=== PATIENT | male | born 1990 | race Caucasian/White ===

== ENCOUNTER 2018-01-20 13:06 | Inpatient (IN) | payer MEDICAID, OTHER ==
[2018-01-20 13:59] LABS: HEMATOCRIT 41.8 % (42.0-52.0); HEMOGLOBIN 14.5 g/dl (13.5-17.5); MEAN CORPUSCULAR HEMOGLOBIN 30.1 pg (27.0-33.0); MEAN CORPUSCULAR HGB CONC 34.7 g/dl (32.0-36.5); MEAN CORPUSCULAR VOLUME 86.7 fl (80.0-96.0); PLATELET COUNT, AUTOMATED 317 10^3/uL (150-450); RED BLOOD COUNT 4.82 10^6/uL (4.30-6.10); RED CELL DISTRIBUTION WIDTH 12.1 % (11.5-14.5); WHITE BLOOD COUNT 16.7 10^3/uL (4.0-10.0)
[2018-01-20 14:23] LABS: AMPHETAMINES LEVEL URINE NEGATIVE (NEGATIVE); BARBITURATES URINE NEGATIVE (NEGATIVE); BENZODIAZEPINES URINE NEGATIVE (NEGATIVE); CANNABINOIDS URINE POSITIVE (NEGATIVE); COCAINE METABOLITE URINE NEGATIVE (NEGATIVE); METHADONE URINE NEGATIVE (NEGATIVE); OPIATES URINE NEGATIVE (NEGATIVE); PHENCYCLIDINE URINE NEGATIVE (NEGATIVE)
[2018-01-20] MEDS: hydrOXYzine 25 MG TAB PO (14:26)
[2018-01-20] MEDS: LISINOPRIL 10 MG TAB PO (14:30)
[2018-01-20 14:31] LABS: ALBUMIN 3.9 GM/DL (3.2-5.2); ALBUMIN/GLOBULIN RATIO 0.98 (1.00-1.93); ALKALINE PHOSPHATASE 111 U/L (45-117); ALT/SGPT 27 U/L (12-78); ANION GAP 7 MEQ/L (8-16); AST/SGOT 18 U/L (7-37); BILIRUBIN,DIRECT 0.1 MG/DL (0.0-0.2); BILIRUBIN,TOTAL 0.6 MG/DL (0.2-1.0); BLOOD UREA NITROGEN 11 MG/DL (7-18); CALCIUM LEVEL 9.4 MG/DL (8.5-10.1); CARBON DIOXIDE LEVEL 24 MEQ/L (21-32); CHLORIDE LEVEL 107 MEQ/L (98-107); CREATININE FOR GFR 0.85 MG/DL (0.70-1.30); ETHYL ALCOHOL (ETHANOL) < 0.003 % (0.000-0.010); GLOMERULAR FILTRATION RATE > 60.0 (>60); GLUCOSE, FASTING 104 MG/DL (70-100); POTASSIUM SERUM 3.9 MEQ/L (3.5-5.1); SALICYLATE LEVEL < 1.7 MG/DL (5.0-30.0); SODIUM LEVEL 138 MEQ/L (136-145); TOTAL PROTEIN 7.9 GM/DL (6.4-8.2)
[2018-01-20 14:38] LABS: ACETAMINOPHEN LEVEL < 2.0 UG/ML (10.0-30.0); CALCIUM OXALATE CRYSTALS RFX MODERATE; KETONE, URINE AUTO RFX TRACE mg/dL (NEGATIVE); LEUKOCYTE ESTERASE UR AUTO RFX NEGATIVE (NEGATIVE); MUCUS, URINE RFX SMALL (NEGATIVE); NITRITE, URINE AUTO RFX NEGATIVE (NEGATIVE); RBC, URINE AUTO RFX 2 /HPF (0-3); SPECIFIC GRAVITY UR AUTO RFX 1.029 (1.002-1.035); SQUAM EPITHELIAL CELL UR AURFX 0 /HPF (0-6); WBC, URINE AUTO RFX 2 /HPF (0-3)
[2018-01-20] MEDS: LORazepam 1 MG TAB PO (15:39)
[2018-01-20] MEDS ORDERED: MOM 30ML SUSPENSION UDC PO (17:30)
[2018-01-21] MEDS: DIVALPROEX 250MG *ER* TAB PO ×2 (09:00→21:00)
[2018-01-21] MEDS: HALOPERIDOL 5 MG TAB PO ×2 (09:00→21:00)
[2018-01-21 09:56] LABS: HEMATOCRIT 41.5 % (42.0-52.0); HEMOGLOBIN 14.2 g/dl (13.5-17.5); MEAN CORPUSCULAR HEMOGLOBIN 29.8 pg (27.0-33.0); MEAN CORPUSCULAR HGB CONC 34.2 g/dl (32.0-36.5); MEAN CORPUSCULAR VOLUME 87.2 fl (80.0-96.0); PLATELET COUNT, AUTOMATED 293 10^3/uL (150-450); RED BLOOD COUNT 4.76 10^6/uL (4.30-6.10); RED CELL DISTRIBUTION WIDTH 12.2 % (11.5-14.5); WHITE BLOOD COUNT 11.7 10^3/uL (4.0-10.0)
[2018-01-21] MEDS: ATORVASTATIN 10 MG TAB PO (10:01)
[2018-01-21] MEDS: LISINOPRIL 10 MG TAB PO (10:02)
[2018-01-21] MEDS: LORazepam 2 MG TAB PO ×2 (11:51→15:27)
[2018-01-21] MEDS: OLANZapine 10 MG TAB PO ×2 (11:51→21:00)
[2018-01-21] MEDS ORDERED: LORazepam 2 MG/ML VIAL (J2060) IM (14:00)
[2018-01-21 14:19] LABS: KETONE, URINE AUTO RFX NEGATIVE (NEGATIVE); LEUKOCYTE ESTERASE UR AUTO RFX NEGATIVE (NEGATIVE); MUCUS, URINE RFX SMALL (NEGATIVE); NITRITE, URINE AUTO RFX NEGATIVE (NEGATIVE); RBC, URINE AUTO RFX 0 /HPF (0-3); SPECIFIC GRAVITY UR AUTO RFX 1.005 (1.002-1.035); SQUAM EPITHELIAL CELL UR AURFX 0 /HPF (0-6); WBC, URINE AUTO RFX 0 /HPF (0-3)
[2018-01-21] MEDS: OLANZapine ORAL DISINTEGRATING TAB 5MG PO (15:27)
[2018-01-22] MEDS: LORazepam 2 MG TAB PO (08:22)
[2018-01-22] MEDS: LISINOPRIL 10 MG TAB PO (08:23)
[2018-01-22] MEDS: ATORVASTATIN 10 MG TAB PO (08:23)
[2018-01-22] MEDS: HALOPERIDOL 5 MG TAB PO ×2 (08:26→20:08)
[2018-01-22] MEDS: DIVALPROEX 250MG *ER* TAB PO ×2 (08:26→20:08)
[2018-01-22] MEDS: OLANZapine 10 MG TAB PO ×2 (08:26→20:08)
[2018-01-22] MEDS: hydrOXYzine 50 MG TAB PO (09:27)
[2018-01-23] MEDS: ATORVASTATIN 10 MG TAB PO (08:32)
[2018-01-23] MEDS: LORazepam 2 MG TAB PO (08:32)
[2018-01-23] MEDS: LISINOPRIL 10 MG TAB PO (08:32)
[2018-01-23] MEDS: HALOPERIDOL 5 MG TAB PO ×2 (08:33→21:18)
[2018-01-23] MEDS: OLANZapine 10 MG TAB PO ×2 (08:33→21:18)
[2018-01-23] MEDS: DIVALPROEX 250MG *ER* TAB PO ×2 (08:33→21:18)
[2018-01-23] MEDS: traZODone 50 MG TAB PO (22:23)
[2018-01-24] MEDS: ATORVASTATIN 10 MG TAB PO (08:29)
[2018-01-24] MEDS: HALOPERIDOL 5 MG TAB PO ×2 (08:29→20:44)
[2018-01-24] MEDS: OLANZapine 10 MG TAB PO ×2 (08:29→20:44)
[2018-01-24] MEDS: DIVALPROEX 250MG *ER* TAB PO ×2 (08:29→20:45)
[2018-01-24] MEDS: LISINOPRIL 10 MG TAB PO (08:30)
[2018-01-24] MEDS: ACETAMINOPHEN TAB 650MG DOSE (2X325MG) PO (09:28)
[2018-01-24] MEDS: MAALOX 30 ML SUSP *UDC PO (13:22)
[2018-01-24] MEDS: OLANZapine ORAL DISINTEGRATING TAB 5MG PO (13:46)
[2018-01-24] MEDS: LORazepam 2 MG TAB PO (18:25)
[2018-01-24] MEDS: traZODone 50 MG TAB PO (20:44)
[2018-01-25] MEDS: ATORVASTATIN 10 MG TAB PO (08:52)
[2018-01-25] MEDS: DIVALPROEX 250MG *ER* TAB PO ×2 (08:52→21:00)
[2018-01-25] MEDS: OLANZapine 10 MG TAB PO ×3 (08:52→21:22)
[2018-01-25] MEDS: LISINOPRIL 10 MG TAB PO (08:52)
[2018-01-25] MEDS: HALOPERIDOL 5 MG TAB PO ×2 (08:52→21:00)
[2018-01-25] MEDS: OLANZapine ORAL DISINTEGRATING TAB 5MG PO (17:17)
[2018-01-25] MEDS: traZODone 50 MG TAB PO (21:22)
[2018-01-26] MEDS: HALOPERIDOL 5 MG TAB PO (09:30)
[2018-01-26] MEDS: DIVALPROEX 250MG *ER* TAB PO ×2 (09:31→21:00)
[2018-01-26] MEDS: LISINOPRIL 10 MG TAB PO (09:31)
[2018-01-26] MEDS: ATORVASTATIN 10 MG TAB PO (09:31)
[2018-01-26] MEDS: OLANZapine 10 MG TAB PO (09:31)
[2018-01-26] MEDS: LORazepam 2 MG TAB PO (11:44)
[2018-01-26] MEDS: HALOPERIDOL 10 MG TAB PO (21:00)
[2018-01-27] MEDS: OLANZapine 10 MG TAB PO (08:05)
[2018-01-27] MEDS: LISINOPRIL 10 MG TAB PO (08:06)
[2018-01-27] MEDS: ATORVASTATIN 10 MG TAB PO (08:06)
[2018-01-27] MEDS: DIVALPROEX 250MG *ER* TAB PO ×2 (08:06→21:31)
[2018-01-27] MEDS: HALOPERIDOL 10 MG TAB PO ×3 (08:07→21:31)
[2018-01-27 10:28] LABS: VALPROIC ACID (DEPAKOTE) 59.1 UG/ML (50.0-100.0)
[2018-01-27] MEDS: traZODone 50 MG TAB PO (21:31)
[2018-01-28] MEDS: OLANZapine 5 MG TAB PO (08:06)
[2018-01-28] MEDS: HALOPERIDOL 10 MG TAB PO ×2 (08:06→20:45)
[2018-01-28] MEDS: ATORVASTATIN 10 MG TAB PO (08:06)
[2018-01-28] MEDS: LISINOPRIL 10 MG TAB PO (08:06)
[2018-01-28] MEDS: DIVALPROEX 250MG *ER* TAB PO ×2 (08:06→20:46)
[2018-01-28] MEDS: OLANZapine ORAL DISINTEGRATING TAB 5MG PO (10:51)
[2018-01-28] MEDS: traZODone 50 MG TAB PO (20:45)
[2018-01-28] MEDS: MAALOX 30 ML SUSP *UDC PO (20:46)
[2018-01-29] MEDS: ATORVASTATIN 10 MG TAB PO (08:15)
[2018-01-29] MEDS: HALOPERIDOL 10 MG TAB PO ×2 (08:15→21:19)
[2018-01-29] MEDS: DIVALPROEX 250MG *ER* TAB PO ×2 (08:15→21:20)
[2018-01-29] MEDS: OLANZapine 5 MG TAB PO (08:15)
[2018-01-29] MEDS: LISINOPRIL 10 MG TAB PO (08:15)
[2018-01-29] MEDS: LACTOBACILLUS ACIDOPHILUS CAP (BACID) PO ×2 (11:34→21:19)
[2018-01-29] MEDS: BACITRACIN OINT 30GM TOP ×2 (11:34→21:00)
[2018-01-29] MEDS: CLINDAMYCIN 150 MG CAP PO ×2 (13:35→21:19)
[2018-01-29] MEDS: traZODone 50 MG TAB PO (21:20)
[2018-01-30] MEDS: CLINDAMYCIN 150 MG CAP PO ×3 (05:54→21:05)
[2018-01-30] MEDS: LISINOPRIL 10 MG TAB PO (08:09)
[2018-01-30] MEDS: ATORVASTATIN 10 MG TAB PO (08:09)
[2018-01-30] MEDS: DIVALPROEX 250MG *ER* TAB PO ×2 (08:09→21:05)
[2018-01-30] MEDS: HALOPERIDOL 10 MG TAB PO ×2 (08:09→21:05)
[2018-01-30] MEDS: LACTOBACILLUS ACIDOPHILUS CAP (BACID) PO ×2 (08:09→21:05)
[2018-01-30] MEDS: OLANZapine 5 MG TAB PO (08:09)
[2018-01-30] MEDS: BACITRACIN OINT 30GM TOP ×2 (08:10→21:00)
[2018-01-30] MEDS: LORazepam 1 MG TAB PO (11:23)
[2018-01-30] MEDS: diphenhydrAMINE 50 MG CAP PO (11:23)
[2018-01-30] MEDS: traZODone 50 MG TAB PO (21:04)
[2018-01-31] MEDS: CLINDAMYCIN 150 MG CAP PO ×3 (06:22→21:14)
[2018-01-31] MEDS: OLANZapine 5 MG TAB PO (08:14)
[2018-01-31] MEDS: LISINOPRIL 10 MG TAB PO (08:14)
[2018-01-31] MEDS: LACTOBACILLUS ACIDOPHILUS CAP (BACID) PO ×2 (08:14→20:05)
[2018-01-31] MEDS: BACITRACIN OINT 30GM TOP ×2 (08:14→20:07)
[2018-01-31] MEDS: HALOPERIDOL 10 MG TAB PO ×2 (08:14→20:05)
[2018-01-31] MEDS: ATORVASTATIN 10 MG TAB PO (08:14)
[2018-01-31] MEDS: DIVALPROEX 250MG *ER* TAB PO ×2 (08:14→20:05)
[2018-01-31] MEDS: HALOPERIDOL DECANOATE 100 MG/ML VIAL (J1631) IM (10:40)
[2018-01-31 13:23] LABS: VALPROIC ACID (DEPAKOTE) 125.4 UG/ML (50.0-100.0)
[2018-01-31] MEDS: traZODone 50 MG TAB PO (20:07)
[2018-02-01] MEDS: CLINDAMYCIN 150 MG CAP PO ×3 (06:25→21:35)
[2018-02-01] MEDS: ATORVASTATIN 10 MG TAB PO (08:01)
[2018-02-01] MEDS: LISINOPRIL 10 MG TAB PO (08:01)
[2018-02-01] MEDS: OLANZapine 5 MG TAB PO (08:01)
[2018-02-01] MEDS: HALOPERIDOL 10 MG TAB PO ×2 (08:01→20:33)
[2018-02-01] MEDS: BACITRACIN OINT 30GM TOP ×2 (08:01→20:34)
[2018-02-01] MEDS: LACTOBACILLUS ACIDOPHILUS CAP (BACID) PO ×2 (08:01→20:33)
[2018-02-01] MEDS: DIVALPROEX 250MG *ER* TAB PO (08:44)
[2018-02-01] MEDS: traZODone 50 MG TAB PO (21:35)
[2018-02-02] MEDS: CLINDAMYCIN 150 MG CAP PO ×3 (05:41→22:07)
[2018-02-02] MEDS: OLANZapine 5 MG TAB PO (08:01)
[2018-02-02] MEDS: LISINOPRIL 10 MG TAB PO (08:02)
[2018-02-02] MEDS: HALOPERIDOL 10 MG TAB PO ×2 (08:02→20:08)
[2018-02-02] MEDS: BACITRACIN OINT 30GM TOP ×2 (08:02→20:06)
[2018-02-02] MEDS: LACTOBACILLUS ACIDOPHILUS CAP (BACID) PO ×2 (08:02→20:08)
[2018-02-02] MEDS: ATORVASTATIN 10 MG TAB PO (08:02)
[2018-02-02 11:10] LABS: VALPROIC ACID (DEPAKOTE) 90.7 UG/ML (50.0-100.0)
[2018-02-02] MEDS: DIVALPROEX 500MG *ER* TAB PO ×2 (13:29→20:08)
[2018-02-02] MEDS: traZODone 50 MG TAB PO (20:08)
[2018-02-03] MEDS: CLINDAMYCIN 150 MG CAP PO (06:01)
[2018-02-03] MEDS: BACITRACIN OINT 30GM TOP (08:09)
[2018-02-03] MEDS: ATORVASTATIN 10 MG TAB PO (08:11)
[2018-02-03] MEDS: LACTOBACILLUS ACIDOPHILUS CAP (BACID) PO (08:11)
[2018-02-03] MEDS: DIVALPROEX 500MG *ER* TAB PO (08:11)
[2018-02-03] MEDS: LISINOPRIL 10 MG TAB PO (08:11)
[2018-02-03] MEDS: HALOPERIDOL 10 MG TAB PO (08:11)
[2018-02-03] MEDS: OLANZapine 5 MG TAB PO (08:11)
== END 2018-02-03 13:20 | disposition home or self-care (01) | DRG 885 ==
LOC: M ED 13:06 → M ED INP 17:22 → M PSY 18:15
DX: F25.0 Schizoaffective disorder, bipolar type (principal); F20.0 Paranoid schizophrenia; Z79.899 Other long term (current) drug therapy; I10 Essential (primary) hypertension; E78.5 Hyperlipidemia, unspecified; M54.5 Low back pain; D72.829 Elevated white blood cell count, unspecified; L73.9 Follicular disorder, unspecified